=== PATIENT | male | born 1985 | race Caucasian/White ===

== ENCOUNTER → 2019-05-04 | Outpatient (CLI) | payer BC ==
--- NOTE | 2019-05-04 07:54 | US ---
EXAMINATION TYPE: US abdomen limited DATE OF EXAM: 05/04/2019 COMPARISON: NONE CLINICAL HISTORY: Abn LFT R94.5. Abnormal labs. No pain. EXAM MEASUREMENTS: Liver Length: 16.2 cm Gallbladder Wall: 0.2 cm CBD: 0.4 cm Right Kidney: 10.7 x 5.5 x 4.9 cm Pancreas: Tail obscured by overlying bowel gas Liver: Appears coarse and decreased penetration Gallbladder: wnl Evidence for sonographic Marroquin's sign: neg CBD: wnl Right Kidney: No hydronephrosis or masses seen IMPRESSION: Probable fatty hepatic infiltration.
== END | disposition home or self-care (01) ==
LOC: RADUSWWP 06:54
PROVIDERS: ATTEND Family Medicine
DX: R94.5 Abnormal results of liver function studies (principal); Z88.1 Allergy status to other antibiotic agents
CPT/HCPCS: 76705